=== PATIENT | male | born 1975 ===

== ENCOUNTER 2018-12-07 14:30 | Inpatient (IN) | payer OTHER ==
[~2018-12-07] VITALS: Ht 167.6 cm; Wt 90.7 kg
[2019-02-02] MEDS ORDERED: FLAGYL PO (13:53)
[2019-02-02] MEDS ORDERED: CIPRO XR 500 M500 MG PO (13:54)
[2019-02-09] MEDS ORDERED: FLAGYL500MG PO (10:25)
[2019-02-12] MEDS ORDERED: INTESTINEX680 M1 PO (10:32)
[2019-02-12] MEDS ORDERED: TRAM1TAB98 PO (10:32)
== END 2019-02-12 10:43 | disposition home or self-care (01) | DRG 331 ==
LOC: SURG 01-04 10:15 → O/R 02-09 04:50 → SURG 02-09 07:00 → OB/GYN 02-09 13:15 → O/R 02-09 13:47 → SURH 02-09 14:14
PROVIDERS: ADMIT Surgery
PROC: 0DTN4ZZ Resection of Sigmoid Colon, Percutaneous Endoscopic Approach (ICD-10-PCS; principal; 2019-02-09 07:00)
DX: K57.32 Diverticulitis of large intestine without perforation or abscess without bleeding (principal); R19.4 Change in bowel habit; K52.89 Other specified noninfective gastroenteritis and colitis